=== PATIENT | male | born 1960 | race Two or more races ===

== ENCOUNTER → 2017-05-26 | Outpatient (CLI) | payer BC ==
[~2017-05-26] MED LIST: LOW DOSE ASPIRI81 M2 PO; TENORMIN25 MG PO
--- NOTE | ~2017-05-26 | CT55 ---
[facility] A Service of [facility] RADIOLOGY TEXT RESULTS PATIENT: NICOLA ALBARRAN [facility] 56 UN[facility] #: [id number] AGE: [address]: Drew Holman MD SEX: M ORDER DR: [id number] [facility] [address] [facility]. [place], [place] [address] [id number] O MR#: [id number] Acc #: [id number] NAME: NICOLA ALBARRAN : 1960 SEX: M STUDY DATE/TIME: 05/26/2017 12:02 UNIT: [facility] ROOM: STUDY DESCRIPTION: CT Chest W Con Attending Physician: Drew Holman M.D., Ph.D. Referring Physician: Drew Holman M.D., Ph.D. Ordering Physician: Drew Holman M.D., Ph.D. Primary Care Physician: Jose Nash M.D. MEDICAL IMAGING REPORT This report is preliminary unless electronic signature is present EXAM CTA chest with contrast INDICATIONS Lymphoma. This exam is requested for subsequent treatment strategy. Patient was diagnosed with lymphoma in 2015. He was noted to have widespread adenopathy in December of 2015. TECHNIQUE Axial CT images were obtained from thoracic inlet through the dome of the diaphragm following administration of intravenous contrast material. This CT exam was performed with one or more of the following radiation dose reduction techniques: automatic exposure control, adjustment of mA and/or kV according to patient size, and iterative reconstruction. FINDINGS I do not see any suspicious mediastinal or hilar adenopathy to suggest recurrent or residual disease. No axillary lymphadenopathy is seen. Patient's thyroid gland and trachea appear within normal limits. There is a small hiatal hernia. There is no pleural or pericardial effusion. 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 The appearance is stable when compared to the April 18, 2016, examination. It extends into the superior vena cava. Thoracic aorta measures within normal size limits. Patient's CT of the abdomen and pelvis has been dictated separately. Background emphysematous changes are noted. Ground-glass nodule at the left lung apex is unchanged in size when compared to the prior study. It measures about 7 mm. There is a subpleural nodule seen within the left lower lobe measuring about 7 mm in size which is new compared to the prior exam. No aggressive osseous abnormalities are seen. IMPRESSION [facility] A Service of [facility] RADIOLOGY TEXT RESULTS PATIENT: NICOLA ALBARRAN LOCATION: [facility] : 56 UNIT #: [id number] AGE: [address]: Drew Holman MD SEX: M ORDER DR: 1. No convincing evidence of recurrent or residual disease. 2. A 7 mm nodule identified within the left upper lobe unchanged when compared to the Mar, 2016 exam. There is also a subpleural nodule measuring 7 mm in size which is not clearly identified on the prior examination. I suspect it is probably still benign but would suggest a followup CT in 6 months. 3. This patient's right internal jugular vein MediPort is looped upon itself within the superior vena cava although the distal tip does extend into the superior vena cava where it is looped within itself within the right internal jugular vein. Again, it continues into the superior vena cava. Dictated by... Ramona Vera M.D. THIS IS AN ELECTRONICALLY VERIFIED REPORT Ramona Vera M.D. at 05/27/2017 4:58 PM AFF/ea TD: 05/26/2017 21:45 JOB #: [id number] MEDICAL IMAGING REPORT Page 1 of 1 COPY
--- NOTE | ~2017-05-26 | CT114 ---
[facility] A Service of [facility] RADIOLOGY TEXT RESULTS PATIENT: NICOLA ALBARRAN LOCATION: [facility] : 56 UNIT #: [id number] AGE: [address]: Drew Holman MD SEX: M ORDER DR: [id number] [facility]. [place], [place] [address] [id number] O MR#: [id number] Acc #: [id number] NAME: NICOLA ALBARRAN : 1960 SEX: M STUDY DATE/TIME: 05/26/2017 12:02 UNIT: [facility] ROOM: STUDY DESCRIPTION: CT Soft Tissue Neck W Cont Attending Physician: Drew Holman M.D., Ph.D. Referring Physician: Drew Holman M.D., Ph.D. Ordering Physician: Drew Holman M.D., Ph.D. MEDICAL IMAGING REPORT This report is preliminary unless electronic signature is present EXAM Soft tissue neck CT with contrast, 05/26/2017 COMPARISON STUDIES Previous soft tissue neck CT, 04/18/2016. HISTORY Follow up lymphoma. No new complaints. TECHNIQUE Axial contrast enhanced soft tissue neck CT with multiplanar reformats. This CT exam was performed with one or more of the following radiation dose reduction techniques: automatic exposure control, adjustment of mA and/or kV according to patient size, and iterative reconstruction. FINDINGS There is no suspicious cervical adenopathy. The vascular structures, including the carotid bifurcations, appear normal as well. There is minimal spinal degenerative change but no acute bony abnormality. Patient is edentulous. The visualized lung apices are unremarkable. IMPRESSION Normal negative soft tissue neck CT. No adenopathy. No suspicious mass. No interval change since 04/18/2016. Dictated by... Henrry George M.D. THIS IS AN ELECTRONICALLY VERIFIED REPORT [facility] A Service of [facility] RADIOLOGY TEXT RESULTS PATIENT: NICOLA ALBARRAN LOCATION: [facility] : 56 UNIT #: [id number] AGE: [address]: Drew Holman MD SEX: M ORDER DR: Henrry George M.D. at 05/30/2017 5:37 PM TEV/pcl TD: 05/26/2017 23:23 JOB #: [id number] MEDICAL IMAGING REPORT Page 1 of 1 COPY
--- NOTE | ~2017-05-26 | CT2 ---
[facility] A Service of [facility] RADIOLOGY TEXT RESULTS PATIENT: NICOLA ALBARRAN [facility] : 56 UNIT #: [id number] AGE: [address]: Drew Holman MD SEX: M ORDER DR: [id number] [facility]. [place], [place] [address] [id number] O MR#: [id number] Acc #: [id number] NAME: NICOLA ALBARRAN : 1960 SEX: M STUDY DATE/TIME: 05/26/2017 12:02 UNIT: [facility] ROOM: STUDY DESCRIPTION: CT Abd and Pelv W Cont Attending Physician: Drew Holman M.D., Ph.D. Referring Physician: Drew Holman M.D., Ph.D. Ordering Physician: Drew Holman M.D., Ph.D. Primary Care Physician: Jose Jiang MEDICAL IMAGING REPORT This report is preliminary unless electronic signature is present EXAM CT of the abdomen and pelvis with contrast INDICATIONS Followup lymphoma. Routine surveillance. TECHNIQUE CT of the abdomen and pelvis was performed following the administration of IV contrast. Coronal and sagittal reformatted images were obtained. This CT exam was performed with one or more of the following radiation dose reduction techniques: automatic exposure control, adjustment of mA and/or kV according to patient size, and iterative reconstruction. COMPARISON 07/22/2016 FINDINGS Please refer to separately dictated chest CT for findings above the diaphragm. There is a stable cyst in the liver. Cholecystectomy. The spleen is unremarkable. There is a small cyst in the left kidney. The right kidney is unremarkable. The adrenal glands are unremarkable. The pancreas is unremarkable. 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 Pelvis: Small fat-containing inguinal hernias bilaterally. The small urinary bladder diverticulum on the right. Scattered diverticula within the colon. No evidence for lymphadenopathy. The bone windows are unremarkable. IMPRESSION No evidence of any abnormal lymphadenopathy. Dictated by... Sergey Mancilla M.D. [facility] A Service of [facility] RADIOLOGY TEXT RESULTS PATIENT: NICOLA ALBARRAN LOCATION: [facility] : 56 UNIT #: [id number] AGE: [address]: Drew Holman MD SEX: M ORDER DR: THIS IS AN ELECTRONICALLY VERIFIED REPORT Sergey Mancilla M.D. at 05/27/2017 7:33 AM ARS/cosme TD: 05/26/2017 21:24 JOB #: [id number] MEDICAL IMAGING REPORT Page 1 of 1 COPY
[2017-05-26 11:55] LABS: POC - CREATININE 0.68 mg/dL (0.64-1.27); POC - GFR >60.0 mL/min (>60)
== END | disposition home or self-care (01) ==
LOC: CCAT 11:19
PROVIDERS: Internal Medicine Hematology & Oncology
DX: C83.88 Other non-follicular lymphoma, lymph nodes of multiple sites (principal); R91.8 Other nonspecific abnormal finding of lung field
CPT/HCPCS: 70491; 71260; 74177; 82565; Q9967